=== PATIENT | male | born 1935 | race Caucasian/White ===

== ENCOUNTER 2020-01-16 17:06 | Emergency (ER) | payer MEDICARE, OTHER ==
[~2020-01-16 17:06] MED LIST: EPINEPHrine 1 MG/10 ML Abboject SYRINGE ONE; Magnesium 5 GM/10 ML Abboject SYRINGE ONE; Sodium Bicarb 50 MEQ/50 ML Abboject 8.4% SYRINGE ONE
[2020-01-17 12:19] LABS: SARS-CoV-2 MS2 Positive; SARS-CoV-2 N Gene Negative; SARS-CoV-2 S Gene Negative; SARS-CoV-2 orf1ab Negative
== END 2020-01-16 17:25 | disposition expired ==
LOC: EDSEX 17:06 → ERS 17:06 → EDBD 17:06 → ERS 17:25
DX: I46.9 Cardiac arrest, cause unspecified (principal); Z20.828 Contact with and (suspected) exposure to other viral communicable diseases
CPT/HCPCS: 96374; 96375; 99285; U0003; 87635; J0171; J3475